=== PATIENT | male | born 1975 | race Caucasian/White ===

== ENCOUNTER → 2019-12-23 | Emergency (ER) | payer BC, OTHER ==
[~2019-12-23] VITALS: Ht 177.8 cm; Wt 134.3 kg
[~2019-12-23] MED LIST: cloNIDine HCL 0.1 MG TAB PO ONE; hydrOXYchloroQUINE SULFATE 200 MG TAB PO ONE
[2019-12-23 13:00] VITALS: BP 106/62
[2019-12-23 13:50] LABS: Basophils # (auto) 0.1 10 ^3/uL (0-0.2); Eosinophils # (auto) 0.2 10 ^3/uL (0-0.8); Hemoglobin 14.2 g/dL (13.5-17.5); Mean Corpuscular Hgb Conc. 32.9 g/dL (32.0-36.0); Mean Corpuscular Volume 79.7 fL (80.0-100.0); Red Cell Distribution Width 14.1 % (11.8-14.3)
[2019-12-23 13:52] LABS: Basophils % (auto) 0.4 % (0.0-2.0); Eosinophils % (auto) 1.7 % (0.0-7.0); Lymphocytes # (auto) 2.4 10 ^3/uL (0.4-5.4); Lymphocytes % (auto) 18.3 % (10.0-50.0); Mean Corpuscular Hemoglobin 26.3 pg (28.0-32.0); Monocytes # (auto) 0.7 10 ^3/uL (0-1.3); Monocytes % (auto) 5.6 % (0.0-12.0); Neutrophils # (auto) 9.7 10 ^3/uL (1.6-8.6); Nucleated Red Blood Cells % 0.2 %; Platelet Count (auto) 292 10^3/uL (140-450); Red Blood Cells 5.39 10^6/uL (4.5-5.90)
[2019-12-23 14:18] LABS: Albumin 3.7 g/dL (3.4-5.0); BUN/Creatinine Ratio 21.9
[2019-12-23 14:21] LABS: Bilirubin, Total 0.5 mg/dL (0.2-1.0); Total Protein 7.5 g/dL (6.4-8.2)
== END | disposition home or self-care (01) ==
LOC: ER 11:48
DX: R05 Cough (principal); R06.02 Shortness of breath; R51 Headache; R11.10 Vomiting, unspecified; R09.89 Other specified symptoms and signs involving the circulatory and respiratory systems; E11.9 Type 2 diabetes mellitus without complications; E78.5 Hyperlipidemia, unspecified; Z20.828 Contact with and (suspected) exposure to other viral communicable diseases
CPT/HCPCS: 36415; 71045; 80053; 82728; 85025; 99284; U0003

== ENCOUNTER 2020-01-29 11:30 | Emergency (ER) | payer BC ==
[~2020-01-29] VITALS: Ht 177.8 cm; Wt 128.4 kg
[2020-01-29 14:14] LABS: Basophils # (auto) 0.1 10 ^3/uL (0-0.2); Basophils % (auto) 0.5 % (0.0-2.0); Eosinophils # (auto) 0.2 10 ^3/uL (0-0.8); Lymphocytes # (auto) 3.1 10 ^3/uL (0.4-5.4); Neutrophils # (auto) 8.6 10 ^3/uL (1.6-8.6); Nucleated Red Blood Cells % 0.1 %; White Blood Cell 12.9 10^3/uL (4.4-10.8)
[2020-01-29 14:15] LABS: Eosinophils % (auto) 1.6 % (0.0-7.0); Hematocrit 43.2 % (41.0-53.0); Hemoglobin 14.3 g/dL (13.5-17.5); Lymphocytes % (auto) 24.2 % (10.0-50.0); Mean Corpuscular Hemoglobin 26.4 pg (28.0-32.0); Mean Corpuscular Hgb Conc. 33.1 g/dL (32.0-36.0); Mean Corpuscular Volume 79.7 fL (80.0-100.0); Monocytes # (auto) 0.8 10 ^3/uL (0-1.3); Monocytes % (auto) 6.6 % (0.0-12.0); Neutrophils % (auto) 67.1 % (37.0-80.0); Platelet Count (auto) 335 10^3/uL (140-450); Red Blood Cells 5.42 10^6/uL (4.5-5.90); Red Cell Distribution Width 13.9 % (11.8-14.3)
[2020-01-29 14:28] LABS: INR 1.05 (0.9-1.15); Partial Thromboplastin Time 28.6 sec (23.0-31.2)
[2020-01-29 14:31] LABS: Albumin 3.9 g/dL (3.4-5.0); Anion Gap 7 (5-15); Blood Urea Nitrogen 25 mg/dL (7-18); Calcium 9.7 mg/dL (8.5-10.1); Carbon Dioxide 28 mmol/L (21-32); Chloride 100 mmol/L (98-107); Glucose 92 mg/dL (74-106); Potassium 4.4 mmol/L (3.5-5.1); Sodium 135 mmol/L (136-145)
[2020-01-29 14:37] LABS: Alanine Aminotransferase 60 U/L (16-61); Alkaline Phosphatase 86 U/L (45-117); Aspartate Aminotransferase 41 U/L (15-37); BUN/Creatinine Ratio 22.1; Bilirubin, Total 0.6 mg/dL (0.2-1.0); GFR African American 90 mL/min; GFR Non-African American 75 mL/min; Total Protein 7.6 g/dL (6.4-8.2)
[2020-01-29 20:20] VITALS: BP 97/54
== END 2020-01-29 20:24 | disposition home or self-care (01) ==
LOC: ER 11:30
DX: R07.89 Other chest pain (principal); K21.9 Gastro-esophageal reflux disease without esophagitis
CPT/HCPCS: 36415; 71046; 80053; 84484; 85025; 85610; 85730; 93005